=== PATIENT | male | born 1955 | race Caucasian/White ===

== ENCOUNTER 2019-09-27 19:10 | Emergency (ER) | payer SELFPAY ==
[~2019-09-27] VITALS: Ht 180.3 cm; Wt 106.5 kg
[2019-09-27 19:13] VITALS: BP 166/86
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
--- NOTE | 2019-09-27 19:58 | NUR ---
Pt is not in the lobby, unable to locate at this time.
== END 2019-09-27 20:10 | disposition left against medical advice (07) ==
LOC: ER 19:10
DX: Z45.89 Encounter for adjustment and management of other implanted devices (principal); Z53.21 Procedure and treatment not carried out due to patient leaving prior to being seen by health care provider

== ENCOUNTER 2019-09-29 17:49 | Emergency (ER) | payer MEDICAID | END 2019-09-29 19:04 | disposition left against medical advice (07) | LOC: ER 17:50 | DX: Z00.00 Encounter for general adult medical examination without abnormal findings (principal); Z53.21 Procedure and treatment not carried out due to patient leaving prior to being seen by health care provider ==

== ENCOUNTER 2019-10-02 07:46 | Emergency (ER) | payer MEDICAID ==
[~2019-10-02] VITALS: Ht 180.3 cm; Wt 108.0 kg
[2019-10-02 07:51] VITALS: BP 163/85
[2019-10-02] MEDS ORDERED: acetaminophen 325mg tablet PO ONE (09:35)
--- NOTE | 2019-10-02 09:56 | NUR ---
Pt resting in bed in no apparent acute distress. Easily rousable by voice. CC: Right Knee pain/swelling
== END 2019-10-02 10:19 | disposition home or self-care (01) ==
LOC: ER 07:47
DX: M25.061 Hemarthrosis, right knee (principal); F15.90 Other stimulant use, unspecified, uncomplicated; V29.9XXA Motorcycle rider (driver) (passenger) injured in unspecified traffic accident, initial encounter; Y93.89 Activity, other specified; Y92.410 Unspecified street and highway as the place of occurrence of the external cause; Y99.8 Other external cause status
CPT/HCPCS: 73564; 99283